=== PATIENT | female | born 1965 | race Asian ===

== ENCOUNTER 2021-04-06 12:08 | Emergency (ER) | payer OTHER ==
[~2021-04-06] VITALS: Ht 154.9 cm; Wt 69.9 kg
[2021-04-06 12:26] VITALS: BP_SYST 114
[2021-04-06] MEDS ORDERED: DIPH-TET-PERTUS Vaccine 0.5 ML VIAL (ADACEL) I.M. ONE (13:15)
[2021-04-06] MEDS ORDERED: IBUPROFEN 600 MG TABLET PO ONE (13:15)
[2021-04-06] MEDS ORDERED: BACITRACIN ZINC 15 GM TOPICAL OINTMENT TP ONE (13:15)
[2021-04-06] MEDS ORDERED: BACITRACIN 1 GM OINT TP ONE (13:30)
[2021-04-06] MEDS ORDERED: IBUP-1969 PO (14:10)
[2021-04-06] MEDS ORDERED: SULF1TAB48 PO (14:10)
[2021-04-06 14:38] VITALS: BP_SYST 115
== END 2021-04-06 14:39 | disposition home or self-care (01) ==
LOC: SED 12:08
DX: S01.81XA Laceration without foreign body of other part of head, initial encounter (principal); S50.01XA Contusion of right elbow, initial encounter; S90.511A Abrasion, right ankle, initial encounter; Z79.899 Other long term (current) drug therapy; W01.198A Fall on same level from slipping, tripping and stumbling with subsequent striking against other object, initial encounter; Y93.89 Activity, other specified; Y92.89 Other specified places as the place of occurrence of the external cause; Y99.8 Other external cause status
CPT/HCPCS: 90715; 99283